=== PATIENT | female | born 1970 | race Caucasian/White ===

== ENCOUNTER → 2017-01-23 | Outpatient (CLI) | payer MEDICARE, MEDICAID | LOC: WI 13:22 | PROVIDERS: ATTEND Family Medicine | DX: Z12.31 Encounter for screening mammogram for malignant neoplasm of breast (principal) | CPT/HCPCS: 77067; G0202 ==

== ENCOUNTER 2017-06-13 13:14 | Emergency (ER) | payer MEDICARE, MEDICAID ==
--- NOTE | 2017-06-13 14:23 | RADIOLOGY REPORT (SQ) ---
EXAM DESCRIPTION: CT HEAD WITHOUT COMPLETED DATE/TIME: 06/13/2017 2:15 pm REASON FOR STUDY: altered COMPARISON: None. TECHNIQUE: Axial images acquired through the brain without intravenous contrast. Images reviewed wi th bone, brain and subdural windows. Images stored on PACS. All CT scanners at this facility use dose modulation, iterative reconstruction, and/or weight based d osing when appropriate to reduce radiation dose to as low as reasonably achievable (ALARA). [facility]: Dose Right [facility]: CareDose [facility]: Dose Right [facility]: Teradose 4D [facility]: [facility] RADIATION DOSE: Up-to-date CT equipment and radiation dose reduction techniques were employed. CTDIv ol: 64.6 mGy. DLP: 1680 mGy-cm. mGy. LIMITATIONS: Study is limited somewhat due to motion artifact FINDINGS: VENTRICLES: Normal size and contour. CEREBRUM: No masses. No hemorrhage. No midline shift. Normal lindsey/white matter differentiation. N o evidence for acute infarction. CEREBELLUM: No masses. No hemorrhage. No alteration of density. No evidence for acute infarction. EXTRAAXIAL SPACES: No fluid collections. No masses. ORBITS AND GLOBE: No intra- or extraconal masses. Normal contour of globe without masses. CALVARIUM: No fracture. PARANASAL SINUSES: No fluid or mucosal thickening. SOFT TISSUES: No mass or hematoma. OTHER: No other significant finding. IMPRESSION: NORMAL BRAIN CT WITHOUT CONTRAST. TECHNICAL DOCUMENTATION: JOB ID: [id number] Quality ID # [id number]: Final reports with documentation of one or more dose reduction techniques (e.g., Au tomated exposure control, adjustment of the mA and/or kV according to patient size, use of iterative reconstruction technique) 2010 [employer]- All Rights Reserved
--- NOTE | 2017-06-13 14:54 | RADIOLOGY REPORT (SQ) ---
EXAM DESCRIPTION: CHEST SINGLE VIEW COMPLETED DATE/TIME: 06/13/2017 2:29 pm REASON FOR STUDY: altered COMPARISON: None. EXAM PARAMETERS: NUMBER OF VIEWS: One view. TECHNIQUE: Single frontal radiographic view of the chest acquired. RADIATION DOSE: NA LIMITATIONS: None. FINDINGS: LUNGS AND PLEURA: No opacities, masses or pneumothorax. No pleural effusion. MEDIASTINUM AND HILAR STRUCTURES: No masses. Contour normal. HEART AND VASCULAR STRUCTURES: Heart normal in size. Normal vasculature. BONES: No acute findings. HARDWARE: None in the chest. OTHER: No other significant finding. IMPRESSION: NO ACUTE RADIOGRAPHIC FINDING IN THE CHEST. TECHNICAL DOCUMENTATION: JOB ID: [id number]
[2017-06-13 15:08] LABS: APPEARANCE,URINE SLIGHTLY-CLOUDY; BILIRUBIN,URINE NEGATIVE (NEGATIVE); GLUCOSE, URINE NEGATIVE (NEGATIVE); KETONES,URINE NEGATIVE (NEGATIVE); LEUKOCYTE ESTERASE,URINE TRACE (NEGATIVE); NITRITE,URINE NEGATIVE (NEGATIVE); PROTEIN,URINE NEGATIVE (NEGATIVE); URINE SPECIFIC GRAVITY 1.009; UROBILINOGEN,URINE NEGATIVE mg/dL (<2.0)
[2017-06-13 15:21] LABS: URINE BARBITURATES SCREEN NEGATIVE; URINE METHADONE SCREEN NEGATIVE; URINE OPIATES LOW NEGATIVE; URINE PHENCYCLIDINE SCREEN NEGATIVE
--- NOTE | 2017-06-13 15:24 | ER Document Report ---
ED General - General Chief Complaint: Altered Mental Status Stated Complaint: DIZZINESS Time Seen by Provider: 06/13/17 13:31 Information source: Patient TRAVEL OUTSIDE OF THE [place] IN LAST 30 DAYS: No - HPI Notes: 47-year-old female with history of substance abuse and bipolar disorder presents with altered sensorium. She has been brought by her friend from her routine Alcoholics Anonymous meeting after developing what she reports as hot sensation all over, swelling in her left face and eventually confusion and anxiety. She repetitively reports to me that she is a nice person and also she keeps wondering where her daughter is. History is a little limited secondary to some of these repetitive statements and circumferential thought. Complains of a headache that is global. Pain is worse on the right. No vision change no focal weakness numbness or tingling. She does admit to dizziness. - Related Data Allergies/Adverse Reactions: codeine [Codeine] Allergy (Verified 06/13/17 14:34) ketorolac tromethamine [From Toradol] Allergy (Verified 06/13/17 14:34) Past Medical History - Social History Smoking Status: Former Smoker Family History: Reviewed & Not Pertinent Patient has suicidal ideation: No Patient has homicidal ideation: No Pulmonary Medical History: Reports: Hx Asthma Renal/ Medical History: Denies: Hx Peritoneal Dialysis Psychiatric Medical History: Reports: Hx Bipolar Disorder Past Surgical History: Reports: Hx Hysterectomy - Immunizations Hx Diphtheria, Pertussis, Tetanus Vaccination: Yes Physical Exam - Vital signs Vitals: Temp Pulse Resp BP Pulse Ox 98.9 F 116 H 20 137/87 H 97 06/13/17 13:27 06/13/17 13:27 06/13/17 13:27 06/13/17 13:27 06/13/17 13:27 Interpretation: Hypertensive - Notes Notes: GENERAL: VS as per nursing doc. Well-appearing, well-nourished and in no acute distress. HEAD: Atraumatic, normocephalic EYES: Pupils equal round and reactive to light, extraocular movements intact, sclera anicteric, no conjunctival injection or discharge. ENT: Nares patent, oropharynx clear without exudates, moist mucous membranes. Upper dentures are in place. There is a small unroofed pustule over the left zygomatic area. Minimal erythema at most surrounding. There is no significant facial edema and definitely no evidence of abscess or significant skin induration NECK: Normal range of motion, supple without lymphadenopathy. LUNGS: Breath sounds clear to auscultation bilaterally and equal. No wheezes rales or rhonchi. HEART: Regular rate and rhythm without murmurs. Peripheral pulses equal. ABDOMEN: Soft, non-tender. BACK: Normal to inspection EXTREMITIES: Normal appearance without edema. NEUROLOGICAL: Cranial nerves intact. Normal speech. Normal sensory and motor exams. No cerebellar abnormalities. PSYCH: Oriented 3. Calm, directable which is required due to statements that are repetitive such as "I am a nice person" and "I just do not know where my daughter is". No evidence of hallucinations or delusions. No reported suicidal or homicidal ideation. Borderline insight. Speech is appropriate. SKIN: Warm, dry. Course - Re-evaluation Re-evalutation: 06/13/17 15:[address] scan and chest x-ray were nonacute. I see no evidence of sepsis although she has a small "pimple" on her left face that she seems focused on. She does seem confused but it appears more psychiatric in nature rather than neurologic. I cannot identify a clear stressor. Laboratory tests are pending at this point. She reports being amnestic for how she got here though she did come with a friend from her Alcoholics Anonymous being. She denies any alcohol use or drug use and has been clean for 8 or more years. Also did not know where her daughter is. Apparently her daughter has been with her the entire time but is out getting food with her friend. 06/13/17 19:18 Patient was observed in the emergency department and has returned to normal baseline and is asking to leave. She states she is still slightly amnestic for how she got here. I see no evidence of seizure activity or CVA by exam or history. Psychiatry saw and cleared her. She will be returning if there are any other problems or concerns. - Vital Signs Vital signs: Temp Pulse Resp BP Pulse Ox 98.9 F 88 22 H 128/84 H 99 06/13/17 13:27 06/13/17 15:25 06/13/17 15:25 06/13/17 15:25 06/13/17 15:25 - Laboratory Result Diagrams: 06/13/17 15:16 06/13/17 15:16 Laboratory results interpreted by me: 06/13/17 06/13/17 06/13/17 13:22 14:50 15:02 WBC RBC POC Glucose 192 H 127 H Urine Blood SMALL H Ur Leukocyte Esterase TRACE H 06/13/17 15:16 WBC 12.7 H RBC 5.32 H POC Glucose Urine Blood Ur Leukocyte Esterase - EKG Interpretation by Me EKG shows normal: Sinus rhythm Rate: Normal - Rate 82, normal sinus rhythm, no clear ischemia, normal QRS. Interpretation normal Discharge - Discharge Clinical Impression: Bipolar 1 disorder, Altered mental status Condition: Stable Disposition: HOME, SELF-CARE Additional Instructions: Bipolar Disorder Bipolar disorder is also called manic-depressive disorder. Depression alternates with brain hyperactivity called iliana. Each phase lasts from several days to a few weeks. We don't know exactly what causes bipolar disorder , but it's treatable. During the "manic phase," you may feel elated and energetic. You may have racing thoughts, rapid speech, increased activity, and grandiose ideas. During this time, you may not realize how poor your judgement is. Inappropriate spending, drug abuse, excessive alcohol use, marriage problems, and irresponsible sexual behavior are common during the manic phase. During the "depressive phase," you might feel depressed, guilty, worthless , fatigued, and unable to concentrate. You might have thoughts of suicide. Good treatments are available for bipolar disorder. [place] is a classic drug for bipolar disorder, and is still often useful. If the manic phase is very mild, an antidepressant alone can be prescribed. If the manic phase is very severe, an antipsychotic medicine (such as Haldol) may be needed. The treatment must be matched to your symptoms, so it's important to work closely with your psychiatric care provider. Contact your physician, the hospital emergency center, crisis line, or your counsellor if you are losing control or having self-destructive thoughts. Please follow up with your out patient [facility] health provider[facility], in 3-5 days. AT ANY TIME, IF YOUR SYMPTOMS CHANGE SIGNIFICANTLY OR WORSEN OR YOU DEVELOP NEW SYMPTOMS, RETURN TO THE EMERGENCY DEPARTMENT IMMEDIATELY FOR RE-EVALUATION. OUR GOAL IS TO PROVIDE EXCELLENT MEDICAL CARE! WE HOPE THAT WE HAVE MET YOUR EXPECTATIONS DURING YOUR EMERGENCY DEPARTMENT VISIT AND THAT YOU FEEL YOU HAVE RECEIVED EXCELLENT CARE! Referrals: [facility] [Outside] - Follow up in 3-5 days BISHOP MCCARTHY MD [Primary Care Provider] - Follow up as needed
[2017-06-13 15:32] LABS: ABSOLUTE BASOPHILS # (AUTO) 0.1 10^3/uL (0.0-0.2); ABSOLUTE EOSINOPHILS # (AUTO) 0.4 10^3/uL (0.0-0.6); ABSOLUTE LYMPHOCYTES (AUTO) 3.8 10^3/uL (0.5-4.7); ABSOLUTE MONOCYTES (AUTO) 1.3 10^3/uL (0.1-1.4); ABSOLUTE NEUT (AUTO) 7.1 10^3/uL (1.7-8.2); BASOPHILS % (AUTO) 0.5 % (0-2); EOSINOPHILS % (AUTO) 3.4 % (0-6); HEMATOCRIT 42.9 % (36.0-47.0); HEMOGLOBIN 14.6 g/dL (12.0-15.5); HGB HCT DIFFERENCE 0.9; LYMPHOCYTES % (AUTO) 29.8 % (13-45); MEAN CORPUSCULAR HEMOGLOBIN 27.5 pg (27.0-33.4); MEAN CORPUSCULAR HGB CONC 34.1 g/dL (32.0-36.0); MEAN CORPUSCULAR VOLUME 81 fl (80-97); MONOCYTES % (AUTO) 10.3 % (3-13); RED BLOOD COUNT 5.32 10^6/uL (3.72-5.28); RED CELL DISTRIBUTION WIDTH 12.6 % (11.5-14.0); WHITE BLOOD COUNT 12.7 10^3/uL (4.0-10.5)
[2017-06-13 15:49] LABS: ALANINE AMINOTRANSFERASE 41 U/L (9-52); ALBUMIN 4.3 g/dL (3.5-5.0); ALKALINE PHOSPHATASE 94 U/L (38-126); ANION GAP 12 (5-19); ASPARTATE AMINO TRANSFERASE 29 U/L (14-36); BILIRUBIN,DIRECT 0.3 mg/dL (0.0-0.4); BILIRUBIN,TOTAL 0.6 mg/dL (0.2-1.3); BLOOD UREA NITROGEN 8 mg/dL (7-20); CALCIUM 9.9 mg/dL (8.4-10.2); CARBON DIOXIDE 24 mmol/L (22-30); CHLORIDE 105 mmol/L (98-107); CREATINE KINASE 107 U/L (30-135); CREATININE RESULT 0.87 mg/dL (0.52-1.25); GLUCOSE 110 mg/dL (75-110); POTASSIUM 4.4 mmol/L (3.6-5.0); SODIUM 140.8 mmol/L (137-145); TOTAL PROTEIN 7.6 g/dL (6.3-8.2)
[2017-06-13 16:00] LABS: CREATINE KINASE MB 1.48 ng/mL (<4.55)
[2017-06-13 16:01] LABS: TROPONIN I < 0.012 ng/mL
[2017-06-13] MEDS ORDERED: ACETAMINOPHEN 325 MG TABLET PO ONE (16:49)
--- NOTE | 2017-06-13 19:04 | ER Document Report ---
ED Psych Disorder / Suicide - General Chief Complaint: Altered Mental Status Stated Complaint: DIZZINESS Time Seen by Provider: 06/13/17 13:31 Information source: Patient TRAVEL OUTSIDE OF THE [place] IN LAST 30 DAYS: No - HPI Notes: pt was at AA meeting and she started with confusion. Friend slightly confused to time and place. pt crying very easily and mixing up days and times. Psychiatric consult requested. Patient states she was diagnosis with bipolar when she was 12 years old. Patient disclosed that she has manic episodes and the last time was about 5-6 months ago. Patient states she knows when she is going into a manic state and this is nothing like that. She does not remember how she got to the hospital. Patient states it started with her head pounding then became confused and overwhelmingly sleepy. Patient states she started to cry because she was scared. patient states she is still a little foggy on some of the details but most of the confusion is gone. Patient states it was very scary because she was aware of feeling "disorientated." Patient states she has been sober for 6 years and has not taken any substances. She has been in patient over 20 times over the years for substance abuse and mental health. Patient stated before the confusion set in she remembers thinking maybe her sugar was low so had a milkshake. Patient has out patient mental health provider through [facility] and her last appointment was about 3 weeks ago. She has bi-monthly appointments. Patient is alert and oriented to person, place, time and circumstance. Mood is euthymic with congruent affect; smiling and laughing with clinician. Patient denies suicidal and homicidal ideation. Patient denies auditory and visual hallucinations; patient is not demonstrating any behaviours congruent with responding to internal stimuli. No delusions are noted, Eye contact was well maintained. thought processes are organized and linear. conversational speech with within normal rate tone and prosody. Intellectual abilities appear to be average range. attention and concentration are good. insight, judgmenent and impluse control appear to be good. Clinician notes patient's presentation has improved significantly when she first arrived to [facility] ED. bipolar per history provided by patient. Impression/plan; Patient is considered psychologically cleared for discharge. patient does not meet IVC criteria per [place] GS 122C. Patient denies suicidal ideation. Patient does not demonstrate any behaviours indicating manic or psychosis. patient is recommended to follow up with out patient services through patient established provider [facility]. Dr. Nova was consulted on the care and management of this patient; attending physician is in agreement with recommendations and disposition. - Related Data Allergies/Adverse Reactions: codeine [Codeine] Allergy (Verified 06/13/17 14:34) ketorolac tromethamine [From Toradol] Allergy (Verified 06/13/17 14:34) Past Medical History - General Information source: Patient - Social History Smoking Status: Former Smoker Family History: Reviewed & Not Pertinent Patient has suicidal ideation: No Patient has homicidal ideation: No Pulmonary Medical History: Reports: Hx Asthma Renal/ Medical History: Denies: Hx Peritoneal Dialysis Psychiatric Medical History: Reports: Hx Bipolar Disorder Past Surgical History: Reports: Hx Hysterectomy - Immunizations Hx Diphtheria, Pertussis, Tetanus Vaccination: Yes Physical Exam - Vital signs Vitals: Temp Pulse Resp BP Pulse Ox 98.9 F 116 H 20 137/87 H 97 06/13/17 13:27 06/13/17 13:27 06/13/17 13:27 06/13/17 13:27 06/13/17 13:27 Course - Vital Signs Vital signs: Temp Pulse Resp BP Pulse Ox 98.9 F 88 22 H 128/84 H 99 06/13/17 13:27 06/13/17 15:25 06/13/17 15:25 06/13/17 15:25 06/13/17 15:25 - Laboratory Result Diagrams: 06/13/17 15:16 06/13/17 15:16 Laboratory results interpreted by me: 06/13/17 06/13/17 06/13/17 13:22 14:50 15:02 WBC RBC POC Glucose 192 H 127 H Urine Blood SMALL H Ur Leukocyte Esterase TRACE H 06/13/17 15:16 WBC 12.7 H RBC 5.32 H POC Glucose Urine Blood Ur Leukocyte Esterase Discharge - Discharge Clinical Impression: Bipolar I disorder Condition: Stable Disposition: HOME, SELF-CARE Additional Instructions: Bipolar Disorder Bipolar disorder is also called manic-depressive disorder. Depression alternates with brain hyperactivity called iliana. Each phase lasts from several days to a few weeks. We don't know exactly what causes bipolar disorder , but it's treatable. During the "manic phase," you may feel elated and energetic. You may have racing thoughts, rapid speech, increased activity, and grandiose ideas. During this time, you may not realize how poor your judgement is. Inappropriate spending, drug abuse, excessive alcohol use, marriage problems, and irresponsible sexual behavior are common during the manic phase. During the "depressive phase," you might feel depressed, guilty, worthless , fatigued, and unable to concentrate. You might have thoughts of suicide. Good treatments are available for bipolar disorder. [place] is a classic drug for bipolar disorder, and is still often useful. If the manic phase is very mild, an antidepressant alone can be prescribed. If the manic phase is very severe, an antipsychotic medicine (such as Haldol) may be needed. The treatment must be matched to your symptoms, so it's important to work closely with your psychiatric care provider. Contact your physician, the hospital emergency center, crisis line, or your counsellor if you are losing control or having self-destructive thoughts. Please follow up with your out patient mental health provider, [facility], in 3-5 days. AT ANY TIME, IF YOUR SYMPTOMS CHANGE SIGNIFICANTLY OR WORSEN OR YOU DEVELOP NEW SYMPTOMS, RETURN TO THE EMERGENCY DEPARTMENT IMMEDIATELY FOR RE-EVALUATION. OUR GOAL IS TO PROVIDE EXCELLENT MEDICAL CARE! WE HOPE THAT WE HAVE MET YOUR EXPECTATIONS DURING YOUR EMERGENCY DEPARTMENT VISIT AND THAT YOU FEEL YOU HAVE RECEIVED EXCELLENT CARE! Referrals: BISHOP MCCARTHY MD [Primary Care Provider] - Follow up as needed [facility] [Outside] - Follow up in 3-5 days
[2017-06-13 19:30] VITALS: BP 123/87
--- NOTE | 2017-06-15 13:38 | EKG REPORT ---
SEVERITY:- NORMAL ECG - SINUS RHYTHM : Confirmed by: Alcira Echols MD 15-Jun-2017 13:37:59
== END 2017-06-13 19:10 | disposition home or self-care (01) ==
LOC: ER 13:14
DX: F31.9 Bipolar disorder, unspecified (principal); R41.82 Altered mental status, unspecified; R42 Dizziness and giddiness; Z88.6 Allergy status to analgesic agent; Z90.710 Acquired absence of both cervix and uterus; Z87.891 Personal history of nicotine dependence
CPT/HCPCS: 93005; 99285; 36415; 82553; 82962; 80307 ×2; 82550; 85025; 80053; 81001; 84484; 71010; 70450; 93010; A9270

== ENCOUNTER → 2018-02-09 | Outpatient (CLI) | payer MEDICARE, MEDICAID ==
--- NOTE | 2018-02-10 08:14 | WOMENS IMAGING REPORT ---
EXAM DESCRIPTION: BILAT SCREENING MAMMO W/CAD COMPLETED DATE/TIME: 02/09/2018 10:09 am REASON FOR STUDY: SCREENING MAMMO Z12.31 ENCNTR SCREEN MAMMOGRAM FOR MALIGNANT NEOPLASM OF ROSS COMPARISON: 01/23/2017 TECHNIQUE: Standard craniocaudal and mediolateral oblique views of each breast recorded using [employer] l acquisition. LIMITATIONS: None. FINDINGS: RIGHT BREAST MASSES: In the far right lateral breast, 10 cm from the nipple, a 7 mm spiculated nodule is present f or which additional diagnostic mammography is required along with right breast ultrasound. CALCIFICATIONS: No new or suspicious calcifications. ARCHITECTURAL DISTORTION: None. DEVELOPING DENSITY: None. ASYMMETRY: None noted. OTHER: No other significant findings. LEFT BREAST MASSES: No suspicious masses. CALCIFICATIONS: No new or suspicious calcifications. ARCHITECTURAL DISTORTION: None. DEVELOPING DENSITY: None. ASYMMETRY: None noted. OTHER: No other significant findings. Read with the assistance of CAD. .[facility] - R2 Cenova Version 1.3 .[facility] Imaging - R2 Cenova Version 1.3 .[facility] - R2 Cenova Version 2.4 .[facility] - R2 Cenova Version 2.4 .[facility] - R2 Medical Billing And Coding Instructor Version 9.2 IMPRESSION: Small spiculated mass far lateral right breast for which diagnostic mammography and ultr asound is recommended for followup No worrisome findings left breast. BREAST DENSITY: b. There are scattered areas of fibroglandular density. BIRAD: 0 Incomplete: Needs Additional Imaging Evaluation and/or prior Mammograms for Comparison. RECOMMENDATION: RECOMMENDED FOLLOW-UP: Additional diagnostic right breast mammograms and right breas t ultrasound The patient will be contacted for additional imaging. COMMENT: The patient has been notified of the results by letter per SA requirements. Additional no tification policies are in place for contacting patient with suspicious or incomplete findings. Quality ID #[id number]: The [employer] recommends an annual screening mammogram for women aged 40 years or over. This facility utilizes a reminder system to ensure that all patients receive reminder letters, and/or direct phone calls for appointments. This includes reminders for routine scr eening mammograms, diagnostic mammograms, or other Breast Imaging Interventions when appropriate. Th is patient will be placed in the appropriate reminder system. The [employer] (ACR) has developed recommendations for screening MRI of the breast s in certain patient populations, to be used in conjunction with mammography. Breast MRI surveillanc e may be appropriate for women with more than 20% lifetime risk of developing breast cancer as deter mined by genetic testing, significant family history of the disease, or history of mantle radiation f or Hodgkins Disease. ACR Practice Guidelines 2008. TECHNICAL DOCUMENTATION: FINDING NUMBER: (1) ASSESSMENT: (1) JOB ID: [id number] [employer]- All Rights Reserved Reading location - IP/workstation name: [facility]
== END ==
LOC: WI 09:49
PROVIDERS: ATTEND Family Medicine
DX: Z12.31 Encounter for screening mammogram for malignant neoplasm of breast (principal); N63.10 Unspecified lump in the right breast, unspecified quadrant
CPT/HCPCS: 77067

== ENCOUNTER → 2018-02-17 | Outpatient (CLI) | payer MEDICARE, MEDICAID ==
--- NOTE | 2018-02-17 13:57 | WOMENS IMAGING REPORT ---
EXAM DESCRIPTION: RIGHT DIAGNOSTIC MAMMO W/CAD; U/S BREAST UNILAT LIMITED COMPLETED DATE/TIME: 02/17/2018 11:30 am; 02/17/2018 1:18 pm REASON FOR STUDY: INCONCLUSIVE; R92.2; RIGHT BREAST; R92.2 R92.2 INCONCLUSIVE MAMMOGRAM COMPARISON: 02/09/2018 TECHNIQUE: True lateral, exaggerated CC and cone compression views. LIMITATIONS: None. FINDINGS: BREAST: right MASSES: Spiculated mass in the upper outer quadrant posterior 3rd persists with cone compression. CALCIFICATIONS: No new or suspicious calcifications. ARCHITECTURAL DISTORTION: None. DEVELOPING DENSITY: None. ASYMMETRY: None noted. OTHER: No other significant findings. Ultrasound the right breast demonstrates poorly marginated focus of decreased echotexture with quarry extraction worker ior shadowing in the 10-11 o'clock position measuring about 8 mm in maximum diameter. IMPRESSION: Suspicious mass in the right breast. BREAST DENSITY: b. There are scattered areas of fibroglandular density. BIRAD: 5 Highly suggestive of malignancy. Appropriate action should be taken. RECOMMENDATION: RECOMMENDED FOLLOW UP: Birads 5: Biopsy should be performed in the absence of clinic al contraindication. SPECIFIC INTERVENTION/IMAGING/CONSULTATION RECOMMENDED:The suspicious finding(s) amenable to US guide d core/vacuum assisted biopsy. COMMUNICATION:The imaging findings were not discussed with the patient. Her referring provider has be en notified of the findings. COMMENT: The patient has been notified of the results by letter per SA requirements. Additional no tification policies are in place for contacting patient with suspicious or incomplete findings. Quality ID #[id number]: The [employer] recommends an annual screening mammogram for women aged 40 years or over. This facility utilizes a reminder system to ensure that all patients receive reminder letters, and/or direct phone calls for appointments. This includes reminders for routine scr eening mammograms, diagnostic mammograms, or other Breast Imaging Interventions when appropriate. Th is patient will be placed in the appropriate reminder system. The [employer] (ACR) has developed recommendations for screening MRI of the breast s in certain patient populations, to be used in conjunction with mammography. Breast MRI surveillanc e may be appropriate for women with more than 20% lifetime risk of developing breast cancer as deter mined by genetic testing, significant family history of the disease, or history of mantle radiation f or Hodgkins Disease. ACR Practice Guidelines 2008. TECHNICAL DOCUMENTATION: FINDING NUMBER: (1) ASSESSMENT: (1) JOB ID: [id number] [employer]- All Rights Reserved Reading location - IP/workstation name: [facility]-[email or web address]
--- NOTE | 2018-02-17 13:57 | WOMENS IMAGING REPORT ---
EXAM DESCRIPTION: RIGHT DIAGNOSTIC MAMMO W/CAD; U/S BREAST UNILAT LIMITED COMPLETED DATE/TIME: 02/17/2018 11:30 am; 02/17/2018 1:18 pm REASON FOR STUDY: INCONCLUSIVE; R92.2; RIGHT BREAST; R92.2 R92.2 INCONCLUSIVE MAMMOGRAM COMPARISON: 02/09/2018 TECHNIQUE: True lateral, exaggerated CC and cone compression views. LIMITATIONS: None. FINDINGS: BREAST: right MASSES: Spiculated mass in the upper outer quadrant posterior 3rd persists with cone compression. CALCIFICATIONS: No new or suspicious calcifications. ARCHITECTURAL DISTORTION: None. DEVELOPING DENSITY: None. ASYMMETRY: None noted. OTHER: No other significant findings. Ultrasound the right breast demonstrates poorly marginated focus of decreased echotexture with story writer ior shadowing in the 10-11 o'clock position measuring about 8 mm in maximum diameter. IMPRESSION: Suspicious mass in the right breast. BREAST DENSITY: b. There are scattered areas of fibroglandular density. BIRAD: 5 Highly suggestive of malignancy. Appropriate action should be taken. RECOMMENDATION: RECOMMENDED FOLLOW UP: Birads 5: Biopsy should be performed in the absence of clinic al contraindication. SPECIFIC INTERVENTION/IMAGING/CONSULTATION RECOMMENDED:The suspicious finding(s) amenable to US guide d core/vacuum assisted biopsy. COMMUNICATION:The imaging findings were not discussed with the patient. Her referring provider has be en notified of the findings. COMMENT: The patient has been notified of the results by letter per SA requirements. Additional no tification policies are in place for contacting patient with suspicious or incomplete findings. Quality ID #225: The [employer] recommends an annual screening mammogram for women aged 40 years or over. This facility utilizes a reminder system to ensure that all patients receive reminder letters, and/or direct phone calls for appointments. This includes reminders for routine scr eening mammograms, diagnostic mammograms, or other Breast Imaging Interventions when appropriate. Th is patient will be placed in the appropriate reminder system. The [employer] (A[employer]) has developed recommendations for screening MRI of the breast s in certain patient populations, to be used in conjunction with mammography. Breast MRI surveillanc e may be appropriate for women with more than 20% lifetime risk of developing breast cancer as deter mined by genetic testing, significant family history of the disease, or history of mantle radiation f or Hodgkins Disease. ACR Practice Guidelines 2008. TECHNICAL DOCUMENTATION: FINDING NUMBER: (1) ASSESSMENT: (1) JOB ID: [id number] [employer]- All Rights Reserved Reading location - IP/workstation name: [email or web address]
== END ==
LOC: WI 11:04
PROVIDERS: ATTEND Family Medicine
DX: N63.11 Unspecified lump in the right breast, upper outer quadrant (principal)
CPT/HCPCS: 76642

== ENCOUNTER 2018-03-25 08:00 | Day surgery (SDC) | payer MEDICARE, MEDICAID ==
[2018-03-18 10:40] LABS: HEMATOCRIT 44.6 % (36.0-47.0); HEMOGLOBIN 15.5 g/dL (12.0-15.5); MEAN CORPUSCULAR HEMOGLOBIN 27.8 pg (27.0-33.4); MEAN CORPUSCULAR HGB CONC 34.8 g/dL (32.0-36.0); MEAN CORPUSCULAR VOLUME 80 fl (80-97); PLATELET COUNT 263 10^3/uL (150-450); RED BLOOD COUNT 5.59 10^6/uL (3.72-5.28); RED CELL DISTRIBUTION WIDTH 12.3 % (11.5-14.0); WHITE BLOOD COUNT 9.8 10^3/uL (4.0-10.5)
[2018-03-18 11:00] LABS: ANION GAP 12 (5-19); BLOOD UREA NITROGEN 8 mg/dL (7-20); CALCIUM 10.2 mg/dL (8.4-10.2); CARBON DIOXIDE 28 mmol/L (22-30); CHLORIDE 104 mmol/L (98-107); GLUCOSE 166 mg/dL (75-110); POTASSIUM 4.1 mmol/L (3.6-5.0); SODIUM 143.5 mmol/L (137-145)
[~2018-03-25 08:00] MED LIST: CEFAZOLIN 1 GM/D5W RTU 1 GM/50 ML RTUPB IV PRN; LACTATED RINGERS 1000 ML IV PRN; LIDOCAINE 0.5% INJ-PF (5 MG/ML) 50 ML SDV SUBCUT PRN; LIDOCAINE 4% TRANSPARENT DRESSING 5 GM KIT TP PRN
[2018-03-25] MEDS ORDERED: METHYLENE BLUE 50 MG/10 ML AMPULE ONE (11:10)
[2018-03-25] MEDS ORDERED: LIDOCAINE 1%/EPINEPHRINE INJ 20 ML VIAL ONE (11:10)
[2018-03-25] MEDS ORDERED: MICROFIBRILLAR COLLAGEN 1 GM PACK ONE (11:10)
[2018-03-25] MEDS ORDERED: MIDAZOLAM 2 MG/2 ML INJ ONE ×3 (11:25→12:25)
[2018-03-25] MEDS ORDERED: SUCCINYLCHOLINE CHLORIDE INJ 200 MG/10 ML VIAL ONE (11:37)
[2018-03-25] MEDS ORDERED: GLYCOPYRROLATE INJ 0.4 MG/2 ML VIAL ONE (11:37)
[2018-03-25] MEDS ORDERED: ONDANSETRON HCL INJ/PF 4 MG/2 ML SDV ONE ×2 (11:37→16:12)
[2018-03-25] MEDS ORDERED: FENTANYL CITRATE INJ/PF 250 MCG/5 ML AMPULE ONE (11:52)
[2018-03-25] MEDS ORDERED: ACETAMINOPHEN 100 ML IV ONE (11:53)
[2018-03-25] MEDS ORDERED: PROPOFOL INJ 200 MG/20 ML VIAL IV ONE (11:53)
[2018-03-25] MEDS ORDERED: HYDROMORPHONE HCL INJ/PF 2 MG/ML AMPULE ONE (13:19)
[2018-03-25] MEDS ORDERED: PROMETHAZINE HCL INJ 25 MG/1 ML VIAL IV PRN ×2 (14:01)
[2018-03-25] MEDS ORDERED: DIPHENHYDRAMINE HCL 50 MG/ML VIAL IV PRN (14:01)
[2018-03-25] MEDS ORDERED: FENTANYL CITRATE INJ/PF 100 MCG/2 ML AMPUL IV PRN ×3 (14:01)
[2018-03-25] MEDS ORDERED: MEPERIDINE HCL/PF INJ 25 MG/1 ML DISP.SYRIN IV PRN (14:01)
--- NOTE | 2018-03-25 15:11 | Discharge Summary ---
Discharge Summary (SDC) - Discharge Final Diagnosis: Right breast cancer Date of Surgery: 03/25/18 Discharge Date: 03/25/18 Condition: Stable Treatment or Instructions: [facility] [address] [place] [id number] Care Instructions Following Your Lumpectomy Activities: Resume normal activities when you feel comfortable. It is best to remain as active as possible to speed your recovery. It is common to experience some fatigue after surgery and you may find that short naps are helpful. Avoid strenuous activity such as weight lifting, tennis, etc at your surgical site for two weeks. Perform gentle arm exercises daily and do not favor your operative arm to due increased risk of mobility issues postoperatively. No driving for 7 days after surgery. Do not drive if you are taking pain medication other than Tylenol or Ibuprofen. No swimming, tub baths or soaking in a hot tub for 4 weeks. There are no dietary restrictions. Do not smoke as this impairs wound healing. Surgical Site care: Leave skin glue in place. You may shower after 48 hours to include washing the wound with soap and water using your hands. Do not scrub the incision. Pat the area dry with a towel. You do not need to recover the wound although some patients find that they feel more comfortable using a light dressing for a few days to absorb any minimal drainage which may occur. Many patients also find that keeping a dressing around the drain exit site is helpful to absorb any drainage which may leak around the tubing. If you use a dressing in this manner change it at least every day. Do not use heating pad or apply an ice pack to the operative site. You may apply deodorant if you are careful to avoid getting it on the wound itself. Empty the bulbs attached to the drain every 12 hours and measure the fluid output separately from each drain. Please also strip each drain each time you empty it to prevent clogging. Keep a record of the output and bring this record with you each time you come to the office for postoperative care. A drain is ready to be removed when its output is 30 mL per 24 hours per drain for 2 consecutive days. Please call the office to inform our staff that you need to come in for drain removal. Medications: Take Motrin (ibuprofen) 600 mg to 800 mg every 8 hours around the clock. You may taper this medication as you experience less pain. Take narcotic pain control such as Tylenol #3 or Percocet one to tablets every six hours as needed for breakthrough pain. Do not take over the counter Tylenol if you are taking either Tylenol #3 or Percocet. Again, you cannot drive while taking narcotic pain medication. Resume all of your normal prescription medications after your surgery unless instructed otherwise. You may experience constipation after surgery while taking pain medications. If using a narcotic on a regular basis, take a stool softener such as Colace twice a day. It is helpful to stay hydrated by drinking lots of fluids. Walking is also helpful and is good exercise after surgery. If you need extra help, use Milk of Magnesia according to the directions on the package. Follow-up: Call our office at to make a follow-up appointment in 10-14 days. Your doctor will call to discuss the pathology report with you as soon as it is available. Concerns: If you had a sentinel lymph node biopsy with your mastectomy, your urine may have a greenish discoloration. This is normal and will resolve as the blue dye slowly leaves your system. If you notice significant leakage around the drains , this is not normal. The drains may be clogged. Please call our office to come in immediately for the drains to be checked. Some bruising may occur and will go away over time. If you have a fever of 101.5 or greater, chills, redness at the incision site, excessive drainage from your wound or severe pain not relieved by pain medication, call your doctor. A physician is available 24 hours a day 7 days a week in addition to regular office hours. If problems arise after normal office hours please call the hospital at . Please call if you have any questions or concerns. Prescriptions: Oxycodone HCl/Acetaminophen [Percocet 5-325 mg Tablet] 1 tab PO ASDIR PRN #4 tab PRN Reason: Referrals: BISHOP MCCARTHY MD [Primary Care Provider] - Discharge Diet: As Tolerated Discharge Activity: No Lifting/Push/Pulling, Walk Frequently Report the Following to Your Physician Immediately: Increase in Pain, Fever over 101 Degrees, Unusual Bleeding, Redness, Swelling, Warmth, Drainage-Foul Smelling
[2018-03-25] MEDS: FENTANYL CITRATE INJ/PF 100 MCG/2 ML AMPUL ONE ×3 (15:12→15:30)
[2018-03-25] MEDS ORDERED: OXYCODONE-ACETAMINOPHEN 5-325 MG TABLET PO PRN (15:13)
[2018-03-25] MEDS ORDERED: DIPHENHYDRAMINE HCL 50 MG/ML VIAL ONE (15:14)
--- NOTE | 2018-03-25 15:18 | Operative Report ---
Operative Report DATE OF SURGERY: 03/25/18 PREOPERATIVE DIAGNOSIS: Invasive right breast carcinoma POSTOPERATIVE DIAGNOSIS: Same OPERATION: 1. Ultrasound directed right breast lumpectomy. 2. Excision of inferior medial wall shaved cavity. 3. Vandiver lymph node biopsy right axilla 2 SURGEON: ASIM TELLO SUGAR CANE GROWER: ASIM CARLSON ANESTHESIA: GA TISSUE REMOVED OR ALTERED: Breast lumpectomy; shave margin; sentinel lymph nodes 2 COMPLICATIONS: None ESTIMATED BLOOD LOSS: Scant INTRAOPERATIVE FINDINGS: See below PROCEDURE: The patient was seen in the preop ambulatory area after having undergone lympho scintigraphy of the right breast. There was an area of increased activity in the right axilla, possibly two areas consistent with successful sentinel lymph node mapping. The patient's right arm was marked, then she was taken to the operating room where she underwent general anesthesia. Right arm was abducted, right breast exposed. Approximately 3 cc of dilute methylene blue was injected into the intradermal space 10 o'clock position areolar border right breast. The right breast was massaged, than the right breast and axilla were prepped and draped in sterile fashion. Surgical plan and surgical timeout performed. Focused ultrasound was performed of the right breast. The target lesion previously biopsied and clip marker placed was in the 10 o'clock position right breast approximately 8 cm from the nipple. We reviewed the patient's previous ultrasound at [facility], as well as our minor procedure notes from [facility]. We confirmed the location of the tumor with the clip marker in it which was somewhat obscure, and close to the chest wall. Skin was anesthetized with 1% plain lidocaine, and approximately 4-1/2-5 cm curvilinear incision was made over the lateral aspect of the right breast. A moderate-sized lumpectomy was then performed using ultrasound as a guide. The lumpectomy was taken down to the pectoralis major muscle. As we removed the specimen, we could feel the tumor in the inferior medial quadrant of the specimen. The specimen was labeled 2 sutures, short silk in the superior position and a long suture in the lateral position. Specimen was taken off the table and immediately radiographed in the operating room with a portable device which showed retention of the clip marker, and the tumor in the inferior quadrant of the specimen; the specimen was then taken to Dr. Padilla, pathologist, where she too felt that the tumor was in the inferior medial aspect of the lumpectomy specimen; however she was concerned that the margin may be positive and recommended a shave excision of the inferior medial wall. We went back to the patient in fact performed an excision of the inferior, medial and slightly posterior margin of the original lumpectomy cavity. The specimen was marked with a suture on the or inside surface of this shave margin. Dr. Carlson personally took this specimen to Dr. Padilla and reviewed its orientation for clarity purposes. We now completed the sentinel lymph node biopsy portion of the procedure. Areas of increased activity in the axilla were felt to be accessible through the original lumpectomy incision. 2 sentinel lymph nodes were harvested, the first was actually a cluster of hot blue nodes Level One. In vivo count was 4850 an ex vivo count was 27,000. A second sentinel lymph node in the same vicinity was blue and hot with an in vivo count of 2114 an ex vivo count of 9614. Axillary background counts at this point were negligible. The intraoperative experience was consistent with the preoperative lymphoscintigraphy showing 2 hot areas in the axilla. At this point felt the operation was complete. A large Aram drain was placed to the skin at the site of the minimally invasive biopsy scar. It was secured to the skin with a 2-0 Prolene suture; Avitene was placed in the recesses of the wound closed with a 2-0 Vicryl, Dermabond glue. Patient tolerated procedure well, extubated, and taken recovery room stable condition. The physician public health assistant, Ms. Choe, provided assistance during this case by: Assisting with retracting tissue, instillation of local anesthesia and closure of skin incisions.
--- NOTE | 2018-03-25 15:34 | RADIOLOGY REPORT (SQ) ---
EXAM DESCRIPTION: NM LYMPHATICS/LYMPH GLANDS COMPLETED DATE/TIME: 03/25/2018 11:00 am REASON FOR STUDY: BREAST CANCER C50.919 MALIGNANT NEOPLASM OF UNSP SITE OF UNSPECIFIED FEMAL COMPARISON: Mammograms and ultrasound 02/17/2018 RADIONUCLIDE AND DOSE: 566 microcuries TC-99m tilmanocept - Lymphoseek. The route of agent administration: Subcutaneous in the skin. TECHNIQUE: The skin of the right breast was prepped in sterile fashion. The radiopharmaceutical was administered in equally divided doses in the periareolar breast. LIMITATIONS: None. FINDINGS: Images demonstrate activity at the injection site. There is activity in right axillary ly mph nodes. IMPRESSION: ADMINISTRATION OF RADIOPHARMACEUTICAL FOR SENTINEL LYMPH NODE EVALUATION. TECHNICAL DOCUMENTATION: JOB ID: [id number] [employer] MD- All Rights Reserved Reading location - IP/workstation name: [email or web address]
[2018-03-25 17:43] VITALS: BP 104/68
--- NOTE | 2018-03-26 08:21 | RADIOLOGY REPORT (SQ) ---
EXAM DESCRIPTION: BREAST SPECIMEN COMPLETED DATE/TIME: 03/25/2018 2:28 pm REASON FOR STUDY: RT BREAST LUMPECTOMY /SPECIMEN IN OR C50.919 MALIGNANT NEOPLASM OF UNSP SITE OF UNSPECIFIED FEMAL COMPARISON: None. TECHNIQUE: Specimen radiograph from breast procedure performed in the operating room. LIMITATIONS: None. FINDINGS: Specimen radiograph from breast procedure performed in the operating room. The nodule of concern and adjacent biopsy clip are at the edge of the specimen. Please see procedure note for details and final pathology. IMPRESSION: Specimen radiograph. Pathology is pending. Location of the lesion and clip were discu ssed with Dr. Mcclendon TECHNICAL DOCUMENTATION: JOB ID: [id number] Reading location - IP/workstation name: [email or web address]
--- NOTE | 2018-03-26 15:59 | OPERATIVE REPORT E ---
Operative Report NAME: PELON MISHRA : 1970 AGE: 48Y DATE OF SURGERY: 03/25/2018 ROOM: ADDENDUM DAMPENER OPERATOR: Susan Choe PA-C. DICTATING PHYSICIAN: ASIM MATA M.D. [id number] PHY#: [id number] ID: [id number] JOB#: [id number] ACCT: [id number] cc:ASIM MATA M.D. >
== END 2018-03-25 17:35 | disposition home or self-care (01) ==
LOC: OROUT 08:00
PROVIDERS: ATTEND Surgery
DX: C50.811 Malignant neoplasm of overlapping sites of right female breast (principal); Z17.0 Estrogen receptor positive status [ER+]; E11.9 Type 2 diabetes mellitus without complications; F17.210 Nicotine dependence, cigarettes, uncomplicated; J45.909 Unspecified asthma, uncomplicated; G47.00 Insomnia, unspecified; F31.30 Bipolar disorder, current episode depressed, mild or moderate severity, unspecified; Z87.898 Personal history of other specified conditions; Z88.5 Allergy status to narcotic agent; Z79.899 Other long term (current) drug therapy; Z01.818 Encounter for other preprocedural examination; Z86.19 Personal history of other infectious and parasitic diseases; Z79.84 Long term (current) use of oral hypoglycemic drugs
CPT/HCPCS: 36415; 82962; 85027; 80048; 88342 ×2; 88341 ×2; 88305 ×2; 88307 ×2; 78195; 76098; 19301; 38500; A9520; J2250; J0690; J1200; J3010 ×2; J3490 ×3; A9270; J1170; J0330; J2405; J2704; J0131; Q9968; 1610